=== PATIENT | female | born 1965 ===

== ENCOUNTER 2022-10-06 14:33 | Emergency (ER) | payer MEDICARE ==
[~2022-10-06] VITALS: Ht 160 cm; Wt 138.9 kg
[2022-10-06] MEDS ORDERED: OZEMPIC1 MG/0.72 SQ (15:14)
[2022-10-06] MEDS ORDERED: MODAFINIL100 M1 PO (15:14)
[2022-10-06] MEDS ORDERED: LEVSOD100 (15:15)
[2022-10-06] MEDS ORDERED: CELEXA40 M1 (15:15)
[2022-10-06] MEDS ORDERED: TIZA4 PO (15:16)
[2022-10-06] MEDS ORDERED: AZELASTINE137 MCG/01 (15:16)
[2022-10-06] MEDS ORDERED: CETI5 PO (15:16)
[2022-10-06] MEDS ORDERED: BUSP10 PO (15:16)
[2022-10-06] MEDS ORDERED: TRAZ50 PO (15:17)
[2022-10-06] MEDS ORDERED: OXYB5 PO (15:17)
[2022-10-06] MEDS ORDERED: 1/2 NS 250ml250 ML (15:18)
[2022-10-06] MEDS ORDERED: GABA400 (15:18)
[2022-10-06 15:24] LABS: BASOPHILS ABSOLUTE AUTO 0.05 K/mm3 (0.00-0.23); BASOPHILS PERCENT AUTO 1 % (0-2); EOSINOPHILS ABSOLUTE AUTO 0.16 K/mm3 (0.00-0.68); EOSINOPHILS PERCENT AUTO 2 % (0-6); Hematocrit 40.9 % (33.0-51.0); Hemoglobin 13.1 g/dL (11.5-16.0); IMMATURE GRAN ABSOLUTE AUTO 0.02 K/mm3 (0.00-0.10); IMMATURE GRAN PERCENT AUTO 0 % (0-1); LYMPHOCYTES ABSOLUTE AUTO 2.56 K/mm3 (0.84-5.20); LYMPHOCYTES PERCENT AUTO 29 % (21-46); MONOCYTES ABSOLUTE AUTO 0.59 K/mm3 (0.16-1.47); MONOCYTES PERCENT AUTO 7 % (4-13); Mean Corpuscular HGB 27.3 pg (26.0-34.0); Mean Corpuscular Volume 85 fL (80-100); Mean Platelet Volume 10.4 fL (9.1-12.4); NEUTROPHILS ABSOLUTE AUTO 5.43 K/mm3 (1.96-9.15); NEUTROPHILS PERCENT AUTO 62 % (41-73); Platelet Count 268 K/mm3 (150-400); RDW Coefficient Variation 14.6 % (11.7-14.2); RDW Standard Deviation 44.9 fL (35.1-46.3); White Blood Cell Count 8.81 K/mm3 (4.00-11.30)
[2022-10-06 15:49] LABS: Albumin, Blood 3.4 g/dL (3.4-5.0); Albumin/Globulin Ratio 0.7 (0.8-1.8); Bilirubin, Total 0.3 mg/dL (0.1-1.0); Bun/Creatinine Ratio 16.5 (12.0-20.0); Calcium, Blood 9.3 mg/dL (8.5-10.1); Creatinine, Blood 0.73 mg/dL (0.40-1.00); Globulin, Blood 4.6 g/dL (2.2-4.0); Potassium, Blood 4.1 mmol/L (3.5-5.5)
[2022-10-06 18:00] VITALS: BP 141/89
== END 2022-10-06 18:36 | disposition home or self-care (01) ==
LOC: ER 14:33
PROVIDERS: Physician Assistant
DX: K43.9 Ventral hernia without obstruction or gangrene (principal); Z88.0 Allergy status to penicillin; Z88.1 Allergy status to other antibiotic agents; Z88.5 Allergy status to narcotic agent; Z91.040 Latex allergy status; Z91.041 Radiographic dye allergy status; Z88.6 Allergy status to analgesic agent; Z88.8 Allergy status to other drugs, medicaments and biological substances
CPT/HCPCS: 74177; 80053; 83690; 84484; 85025; 93005; 93010; 96374-59; 96375; 99284-25; J1200; J2270; J2405; J2930; J7030; Q9967